=== PATIENT | female | born 1995 | race Caucasian/White ===

== ENCOUNTER 2019-02-02 18:27 | Outpatient (CLI) | payer OTHER ==
[~2019-02-02] VITALS: Ht 165.1 cm; Wt 118.7 kg
[~2019-02-02 18:27] MED LIST: DENIES
[2019-02-02 20:22] VITALS: BP 111/63; PULSE 85; RESP 18
[2019-02-02] MEDS ORDERED: FERR134T PO (20:25)
[2019-02-02] MEDS ORDERED: PREN-19 PO (20:25)
--- NOTE | 2019-02-27 09:22 | PREOPHP ---
DATE OF ADMISSION: 02/02/2019 HISTORY OF PRESENT ILLNESS: This is a 23-year-old lady, 1, para 0, EDC ____2019 at 38 and 4/ 7ths weeks, admitted to labor and delivery area for observation. She was having mild irregular contr actions that started about a few hours prior to admission. She had care in [facility] and the care was uneventful. PAST PERSONAL HISTORY: No history of TB, asthma. ALLERGIES: NO ALLERGIES. SOCIAL HISTORY: Patient does not smoke. She does not drink. MEDICATIONS: She does not take any drugs except her iron and vitamins. GYNECOLOGIC HISTORY: She had menarche at the age of 11, every 28 days interval, 3 to 4 days duration , and moderate in amount. GYNECOLOGICAL HISTORY: She had menarche at the age of 13, every 28 days interval, 3 to 4 days durati on, and moderate in amount. FAMILY HISTORY: Father has diabetes. Mother has hypertension and heart disease. REVIEW OF SYSTEMS: CARDIOVASCULAR: No chest pains. RESPIRATORY: No cough. GASTROINTESTINAL: No diarrhea, no vomiting. GENITOURINARY: No dysuria. PHYSICAL EXAMINATION: GENERAL: Reveals a conscious, coherent lady and in no acute distress. VITAL SIGNS: Her blood pressure 120/80, pulse rate 80 per minute, respirations 16 per minute. LUNGS: Within normal limits. ABDOMEN: Soft, fundic height 37 cm. heart tones 140 per minute. PELVIC: Revealed the cervix to be closed, station -2 in cephalic presentation with the bag of water intact. EXTREMITIES: No pedal edema. ADMITTING DIAGNOSIS: A 38 and 4/7ths weeks intrauterine , rule out labor. The patient was observed in the hospital and she was given IV hydration. After observation, the patient felt better and contractions had spaced out and almost no contractions, so after 3 hours of observation, she was discharged home in good and stable condition on general diet and activity that was restricted. She w as told to come back to the hospital if she has a problem or concern. FINAL DIAGNOSIS: A 38 and 4/7ths weeks intrauterine in for labor and dehydration. Dictated By: DEXTER PHAM/BRANDON Conf#: [id number] DID#: [id number]
== END 2019-02-02 21:30 | disposition home or self-care (01) ==
LOC: OBT 18:27 → L-D 18:28 → OBT 21:30
PROVIDERS: ATTEND Obstetrics & Gynecology
DX: O62.9 Abnormality of forces of labor, unspecified (principal); O26.893 Other specified pregnancy related conditions, third trimester; E86.0 Dehydration; Z3A.38 38 weeks gestation of pregnancy
CPT/HCPCS: 76815; 76818; 84112; Z7500; G0463

== ENCOUNTER 2019-02-05 13:13 | Inpatient (IN) | payer OTHER ==
[~2019-02-05] VITALS: Ht 165.1 cm; Wt 92.2 kg
[~2019-02-05 13:13] MED LIST changes: -DENIES; +FERR134T PO; +PREN-19 PO
[2019-02-11 14:14] VITALS: Ht 165.1 cm; Wt 92.2 kg
[2019-02-11 14:16] VITALS: BP 112/62; PULSE 68; RESP 18
[2019-02-11] MEDS ORDERED: METHYLERGONOVINE 0.2 MG INJ IM PRN (14:30)
[2019-02-11] MEDS ORDERED: LIDOCAINE 1% (MPF) 30 ML INJ INJ PRN (14:30)
[2019-02-11] MEDS ORDERED: CARBOPROST 250 MCG INJ IM PRN (14:30)
[2019-02-11] MEDS ORDERED: MISOPROSTOL 200 MCG TAB PR PRN (14:30)
[2019-02-11] MEDS ORDERED: BUTORPHANOL 2 MG INJ IV PRN (14:30)
[2019-02-11] MEDS ORDERED: OXYTOCIN 30 UNITS/LR 500 ML IV SCH ×2 (14:30)
[2019-02-11] MEDS ORDERED: IBUPROFEN 600 MG TAB PO PRN (14:30)
[2019-02-11] MEDS ORDERED: OXYTOCIN 30 UNITS/LR 500 ML IV PRN (14:30)
[2019-02-11] MEDS: OXYTOCIN 30 UNITS/LR 500 ML IV SCH (16:36)
[2019-02-11] MEDS: LACTATED RINGER'S 1,000 ML IV SCH ×2 (16:44→20:41)
[2019-02-12] MEDS: LACTATED RINGER'S 1,000 ML IV SCH ×4 (03:19→13:20)
[2019-02-12] MEDS: OXYTOCIN 30 UNITS/LR 500 ML IV SCH ×3 (10:01→23:23)
--- NOTE | 2019-02-12 11:44 | PREAC ---
Date/Time of Note Date/Time of Note DATE: 02/12/19 TIME: 11:43 Anesthesia Eval and Record Evaluation Time Pre-Procedure Interview DATE: 02/12/19 TIME: 11:43 Age 23 Sex female NPO: 8 hrs Preoperative diagnosis G1 Planned procedure labor epidural Past Medical History Past Medical History: Includes GI: Obesity Surgery & Anesthesia Issues No known issue Meds Anticoagulation: No Beta Destini within 24 hr: No Reason Beta Destini not given: Pt. not on B-Destini Reported Medications Vit #76/Iron,Carb/FA (Prenatabs Rx Tablet) 1 Each Tablet, 1 EACH PO DAILY, TAB 02/02/19 Ferrous Sulfate (Iron) 134 Mg Tablet, 134 MG PO DAILY, TAB 02/02/19 Current Medications Butorphanol Tartrate (Stadol) 2 mg Q2H PRN IV .PAIN Last administered on 02/12/19at 08:17; Admin Dose 2 MG; Start 02/11/19 at 14:30 Lidocaine (Xylocaine 1% (Mpf)) 30 ml ONCE PRN INJ .EPISIOTOMY; Start 02/11/19 at 14:30 Oxytocin/Lactated Ringer's 500 ml @ 500 mls/hr ONCE POST IV ; Start 02/11/19 at 14:30 Oxytocin/Lactated Ringer's 500 ml @ 125 mls/hr POST IV ; Start 02/11/19 at 14:30 Ibuprofen (Motrin) 600 mg ONCE PRN PO .PAIN 1-5; Start 02/11/19 at 14:30 Oxytocin/Lactated Ringer's 500 ml @ 0 mls/hr ONCE PRN IV .VAGINAL BLEEDING; Start 02/11/19 at 14:30 Methylergonovine Maleate (Methergine) 0.2 mg ONCE PRN IM .VAGINAL BLEEDING; Start 02/11/19 at 14:30 Carboprost Tromethamine (Hemabate) 250 mcg ONCE PRN IM .VAGINAL BLEEDING; Start 02/11/19 at 14:30 Misoprostol (Cytotec) 1,000 mcg ONCE PRN TN .VAGINAL BLEEDING; Start 02/11/19 at 14:30 Lactated Ringer's 1,000 ml @ 125 mls/hr Q8H IV Last administered on 02/12/19at 10:42; Admin Dose 125 MLS/HR; Start 02/11/19 at 14:30 Oxytocin/Lactated Ringer's 500 ml @ 0 mls/hr Q0M IV Last administered on 02/12/19at 10:01; Admin Dose 1 MLS/HR; Start 02/11/19 at 16:30 Meds reviewed: Yes Allergies Coded Allergies: No Known Drug Allergy (Verified Allergy, Mild, 02/02/19) Allergies Reviewed: Yes Labs/Studies Labs Reviewed: Reviewed by anesthesiologist Result Diagram: 02/11/19 1415 Laboratory Tests 02/11/19 14:15 Blood Bank Test 02/11/19 14:15 Antibody Screen NEGATIVE Blood Type O POSITIVE Rh Immune Globulin Candidate NO test: Positive Pre-procedure Exam Last vitals Vital Signs Date Temp Pulse Resp B/P (MAP) Pulse Ox O2 O2 Flow FiO2 Time Delivery Rate 02/11/19 98.2 68 18 112/62 Room Air 14:16 (79) Airway: Adequate mouth opening, Adequate thyromental dist Mallampati: Mallampati II Teeth: Normal Lung: Normal Heart: Normal ASA Physical Status ASA physical status: 2 Emergency: None Planned Anesthetic Neuraxial: Epidural Pre-operative Attestations Prior to commencing anesthesia and surgery, the patient was re-evaluated, there was verification of: *The patient's identity *The results of appropriate recent lab work and preoperative vital signs *The above evaluation not changing prior to induction *Anesthetic plan, risk benefits, alternative and complications discussed with patient/family; questions answered; patient/family understands, accepts and wishes to proceed. ANITA PHILLIPS Feb 12, 2019 11:44
[2019-02-12] MEDS ORDERED: FENTAnyl 2MCG/ML-ROPIV 0.2% 100 ML ONE (11:56)
[2019-02-12] MEDS ORDERED: DIPHENHYDRAMINE 50 MG INJ IV PRN (12:00)
[2019-02-12] MEDS ORDERED: NALOXONE (0.4 MG/ML) INJ IV PRN (12:00)
[2019-02-12] MEDS ORDERED: HYDROmorphONE 0.5 MG/0.5 ML SYG IV PRN ×2 (12:00)
[2019-02-12] MEDS ORDERED: FENTAnyl 2MCG/ML-ROPIV 0.2% 100 ML BAG EPI SCH (12:00)
[2019-02-12] MEDS ORDERED: ONDANSETRON 4 MG INJ IV PRN ×2 (12:00→18:30)
[2019-02-12] MEDS ORDERED: KETOROLAC 30 MG INJ IV PRN (12:00)
--- NOTE | 2019-02-12 12:19 | PAC ---
Date/Time of Note Date/Time of Note DATE: 02/12/19 TIME: 12:19 Post-Anesthesia Notes Post-Anesthesia Note Last documented vital signs Vital Signs Date Temp Pulse Resp B/P (MAP) Pulse Ox O2 O2 Flow FiO2 Time Delivery Rate 02/11/19 98.2 68 18 112/62 Room Air 14:16 (79) Activity: WNL Respiratory function: WNL Cardiovascular function: WNL Mental status: Baseline Pain reasonably controlled: Yes Hydration appropriate: Yes Nausea/Vomiting absent: Yes ANITA PHILLIPS Feb 12, 2019 12:19
--- NOTE | 2019-02-12 18:25 | LDN ---
Date/Time of Note Date/Time of Note DATE: 02/12/19 TIME: 18:22 Delivery Summary February 12, 2019 I was called to cover the delivery when the patient was complete and was trying to push.. She has significant urge to push. Patient had been induced and had been managing by primary OB, she was assigned to cover for delivery. Status post induction for postdate Weeks of Gestation 40 weeks Placenta Delivered: Spontaneously Meconium: none Episiotomy: No Indication for episiotomy N./A Perineal laceration: 2 Laceration repair: Second degree perineal laceration noted repaired using 2-0 vicryl and 3-0 chromic Anesthesia type: Epidural Estimated blood loss: 500 Sponge & Needle done & correct: Yes All needle counts correct: Yes Any foreign bodies felt in the: No Delivery Information Sex Infant Sex: male Apgars 1 Minute: 8 5 Minute: 9 Suctioning Nose & mouth suctioned at jamie: Yes Delee suction performed: Yes Umbilical Cord Umbilical cord with: 3 Vessels Cord presentations: no nuchal cord Cord Blood was obtained: Yes SANDIE DURAN MD Feb 12, 2019 18:25
[2019-02-12] MEDS: IBUPROFEN 600 MG TAB PO SCH ×2 (18:30→23:20)
[2019-02-12] MEDS ORDERED: LANOLIN HPA 1 PKT TOP PRN (18:30)
[2019-02-12] MEDS ORDERED: MISOPROSTOL 200 MCG TAB PR PRN (18:30)
[2019-02-12] MEDS ORDERED: NACL 0.9% 3 ML SYG IV SCH (18:30)
[2019-02-12] MEDS ORDERED: OXYTOCIN 30 UNITS/LR 500 ML IV PRN (18:30)
[2019-02-12] MEDS ORDERED: DIPHENHYDRAMINE 25 MG CAP PO PRN (18:30)
[2019-02-12] MEDS ORDERED: CARBOPROST 250 MCG INJ IM PRN (18:30)
[2019-02-12] MEDS ORDERED: WITCH HAZEL/GLYCERIN PAD PR PRN (18:30)
[2019-02-12] MEDS ORDERED: ACETAMINOPHEN 325 MG TAB PO PRN (18:30)
[2019-02-12] MEDS ORDERED: ZOLPIDEM 5 MG TAB PO PRN (18:30)
[2019-02-12 20:45] VITALS: BP 105/63; PULSE 103; RESP 18
--- NOTE | 2019-02-12 20:54 | PREOPHP ---
DATE OF ADMISSION: 02/11/2019 HISTORY OF PRESENT ILLNESS: This is a 23-year-old lady, 1, her EDC 02/12/2019, at 39 and 6/7 weeks, admitted in early labor and for Pitocin augmentation. She had care in [facility] and the care was uneventful. PAST PERSONAL HISTORY: No history of diabetes, TB, asthma. ALLERGIES: NO ALLERGIES. SOCIAL HISTORY: The patient does not smoke. She does not drink. MEDICATIONS: She does not take any drugs except her: 1. Iron. 2. Vitamins. GYNECOLOGIC HISTORY: She had menarche at the age of 13, every 28 days interval, 3 to 4 days duration and moderate in amount. FAMILY HISTORY: Father has diabetes. Mother has hypertension and father had heart disease. REVIEW OF SYSTEMS: CARDIOVASCULAR: No chest pains. RESPIRATORY: No cough. GASTROINTESTINAL: No diarrhea, no vomiting. GENITOURINARY: No dysuria. PHYSICAL EXAMINATION: GENERAL: Reveals a conscious, coherent lady and in no acute distress. VITAL SIGNS: Her blood pressure 120/80, pulse rate 80 per minute, respirations 16 per minute. BREASTS, HEART AND LUNGS: Within normal limits. ABDOMEN: Soft. Fundic height is 37 cm. heart tones are 140 per minute. PELVIC: Done by me on 4:00 p.m. on 02/11/2019, revealed the cervix to be 2 cm dilated, 50% effaced a nd station -2 in cephalic presentation with the bag of water intact. EXTREMITIES: No pedal edema. ADMITTING DIAGNOSIS: A 39 and 6/7 weeks intrauterine in early labor. The patient had an OB ultrasound and estimated weight was 8 pounds and 8 ounces. The plans of delivery were explained to the patient and to her mother as to go for vaginal delivery. The risks, b enefits and alternatives to vaginal delivery were explained to the patient and . The risks of shoulder dystocia were explained to the patient and she understood everything totally. The patien t will be discharged to go for a trial of labor and to go for vaginal delivery. She is waiting to ta ke the risks of shoulder dystocia as well. The nurse was present at this discussion and it is on her progress note. The patient was given Pitocin augmentation. The patient was observed overnight. Sh jacklyn received Stadol for pain and at 12:00 noon on 02/12/2019, she was noted to be 7 cm dilated, 100% ef faced, station 0 in cephalic presentation with the bag of water intact and bulging. She had artifici al rupture of membranes. scalp electrodes and IPC were inserted. She just received labor epid ural. She was planned to continue on Pitocin augmentation. Dictated By: DEXTER PHAM/BRANDON Conf#: [id number] DID#: [id number]
[2019-02-12] MEDS: SENNA/DOCUSATE NA (8.6MG/50MG) TAB PO SCH (23:21)
[2019-02-12 23:30] VITALS: BP 104/65; PULSE 101; RESP 18
[2019-02-13 03:29] VITALS: BP 92/50; PULSE 85; RESP 18
[2019-02-13] MEDS: IBUPROFEN 600 MG TAB PO SCH ×4 (05:47→23:40)
[2019-02-13 08:00] VITALS: BP 103/65; PULSE 75; RESP 16
[2019-02-13] MEDS: SENNA/DOCUSATE NA (8.6MG/50MG) TAB PO SCH ×2 (10:11→21:00)
[2019-02-13 15:40] VITALS: BP 112/65; PULSE 87; RESP 16
[2019-02-13] MEDS ORDERED: BISACODYL 10 MG SUPP PR ONE ×2 (16:00→21:00)
[2019-02-13] MEDS ORDERED: BENZOCAINE 20% 56 ML SPRAY TOP PRN (16:00)
[2019-02-13] MEDS ORDERED: MAGNESIUM HYDROXIDE 30ML CUP PO ONE ×2 (16:00→21:00)
--- NOTE | 2019-02-13 16:56 | PN ---
Date/Time of Note Date/Time of Note DATE: 02/13/19 TIME: 16:55 Assessment/Plan VTE [place]axis [place] [facility] [place] risk: 2 [place]CD [place] [facility] [place] No SCD contraindicated: low risk/ambulating Pharmacological prophylaxis: NA/contraindicated Pharm contraindication: low risk/ambulating Lines/Catheters IV Catheter Type (from [facility]): Peripheral IV Assessment/Plan Assessment/Plan POST DAY 1 CHRONIC IRON DEFICIENCY ANEMIA HOME TOMORROW RETURN TO CLINIC IN 2 WEEKS CONTINUE WITH VITAMINS OD AND FERROUS SULFATE PO TID DIET ADVISED COUNSELED INSTRUCTED CALL OFFICE IF THERE IS ANY PROBLEMS OR CONCERN Result Diagram: 02/13/19621 Results 24hrs Laboratory Tests Test 02/12/19 19:34 02/13/19 04:30 02/13/19 06:22 Hemoglobin 10.7 L 9.4 L Hematocrit 31.8 L 28.7 L Urine Opiates Screen Negative Urine Barbiturates Negative Urine Amphetamines Screen Negative Urine Benzodiazepines Screen Negative Urine Cocaine Screen Negative Urine Cannabinoids Negative White Blood Count 11.0 #H Red Blood Count 3.08 #L Mean Corpuscular Volume 93.2 Mean Corpuscular Hemoglobin 30.5 Mean Corpuscular Hemoglobin Concent 32.8 Red Cell Distribution Width 13.6 Platelet Count 117 #L Mean Platelet Volume 12.2 H Immature Granulocytes % 0.500 H Neutrophils % 69.9 Lymphocytes % 17.8 Monocytes % 10.8 Eosinophils % 0.7 Basophils % 0.3 Nucleated Red Blood Cells % 0.0 Immature Granulocytes # 0.060 H Neutrophils # 7.7 H Lymphocytes # 2.0 Monocytes # 1.2 H Eosinophils # 0.1 Basophils # 0.0 Nucleated Red Blood Cells # 0.0 Subjective 24 Hr Interval Summary Free Text/Dictation FEELS GOOD, GOOD URINE OUTPUT, GOOD BOWEL MOVEMENT Exam/Review of Systems Exam Vitals Vital Signs Date Temp Pulse Resp B/P (MAP) Pulse Ox O2 O2 Flow FiO2 Time Delivery Rate 02/13/19 99.3 87 16 112/65 15:40 (81) 02/13/19 Room Air 08:00 Intake and Output 02/12/19 02/12/19 02/13/19 1515:00 23:00 07:00 IntakeIntake Total 2933 ml 1950 ml 850 ml OutputOutput Total 1100 ml 50 ml 1200 ml BalanceBalance 1833 ml 1900 ml -350 ml Exam VITAL SIGNS STABLE: YES AFEBRILE: YES BREAST NOT ENGORGED, NON-TENDER, NO APPRECIABLE MASS: YES LUNGS CLEAR, NO RALES, WHEEZES, RHONCHI: YES SINUS RHYTHM WITHOUT MURMUR: YES ABDOMEN: NON-TENDER FUNDUS: BELOW UMBILICUS BOWEL SOUNDS: PRESENT UTERUS: FIRM TEAR HEALING WELL LOCHIA: LIGHT DEEP TENDON REFLEXES: 0 EXTREMITIES: NO CALF TENDERNESS EDEMA SCALE: NONE Results Results 24hrs Laboratory Tests Test 02/12/19 19:34 02/13/19 04:30 02/13/19 06:22 Hemoglobin 10.7 L 9.4 L Hematocrit 31.8 L 28.7 L Urine Opiates Screen Negative Urine Barbiturates Negative Urine Amphetamines Screen Negative Urine Benzodiazepines Screen Negative Urine Cocaine Screen Negative Urine Cannabinoids Negative White Blood Count 11.0 #H Red Blood Count 3.08 #L Mean Corpuscular Volume 93.2 Mean Corpuscular Hemoglobin 30.5 Mean Corpuscular Hemoglobin Concent 32.8 Red Cell Distribution Width 13.6 Platelet Count 117 #L Mean Platelet Volume 12.2 H Immature Granulocytes % 0.500 H Neutrophils % 69.9 Lymphocytes % 17.8 Monocytes % 10.8 Eosinophils % 0.7 Basophils % 0.3 Nucleated Red Blood Cells % 0.0 Immature Granulocytes # 0.060 H Neutrophils # 7.7 H Lymphocytes # 2.0 Monocytes # 1.2 H Eosinophils # 0.1 Basophils # 0.0 Nucleated Red Blood Cells # 0.0 Medications Medication Current Medications IV Flush (NS 3 ml) 3 ml PER PROTOCOL IV ; Start 02/12/19 at 18:30 Ibuprofen (Motrin) 600 mg Q6 PO Last administered on 02/13/19at 12:34; Admin Dose 600 MG; Start 02/12/19 at 18:30 Ondansetron HCl (Zofran Inj) 4 mg Q6H PRN IV NAUSEA/VOMITING; Start 02/12/19 at 18:30 Diphenhydramine HCl (Benadryl) 25 mg Q6H PRN PO .PRUTITUS; Start 02/12/19 at 18:30 Zolpidem Tartrate (Ambien) 5 mg QHS PRN PO .INSOMNIA; Start 02/12/19 at 18:30 Senna/Docusate Sodium (Senokot-S) 1 tab BID PO Last administered on 02/13/19at 10:11; Admin Dose 1 TAB; Start 02/12/19 at 21:00 Witch Jemma/ Glycerin (Tucks Pads) 1 pad BEDSIDE MEDICATION PRN AK .HEMORRHOID/EPISIOTOMY PAIN Last administered on 02/12/19at 23:21; Admin Dose 1 PAD; Start 02/12/19 at 18:30 Lanolin (Lanolin Hpa) 1 applic BEDSIDE MEDICATION PRN TOP .NIPPLES Last administered on 02/12/19 23:21; Admin Dose 1 APPLIC; Start 02/12/19 at 18:30 Measles/Mumps/ Rubella Vaccine Live (Mmr Ii Vaccine) 0.5 ml ONCE ONCE SC* ; Start 02/14/19 at 09:00; Stop 02/14/19 at 09:01 Diphtheria/ Tetanus/Acell Pertussis (Adacel) 0.5 ml ONCE ONCE IM* ; Start 02/14/19 at 09:00; Stop 02/14/19 at 09:01 Varicella Virus Vaccine Live (Varivax Vaccine With Diluent) 1,350 unit ONCE ONCE SC* ; Start 02/14/19 at 09:00; Stop 02/14/19 at 09:01 Acetaminophen (Tylenol Tab) 650 mg Q4H PRN PO .TEMP; Start 02/12/19 at 18:30 Oxytocin/Lactated Ringer's 500 ml @ 0 mls/hr ONCE PRN IV .VAGINAL BLEEDING; Start 02/12/19 at 18:30 Carboprost Tromethamine (Hemabate) 250 mcg ONCE PRN IM .VAGINAL BLEEDING; Start 02/12/19 at 18:30 Misoprostol (Cytotec) 1,000 mcg ONCE PRN [place] .VAGINAL BLEEDING; Start 02/12/19 at 18:30 Benzocaine (Dermoplast [place]) 1 spray PRN PRN TOP EPISIOTOMY Last administered on 02/13/19 16:20; Admin Dose 1 SPRAY; Start 02/13/19 at 16:00 Magnesium Hydroxide (Milk Of Mag) 30 ml ONCE ONCE PO ; Start 02/13/19 at 21:00; Stop 02/13/19 at 21:01 Bisacodyl (Dulcolax Supp) 10 mg ONCE ONCE AK ; Start 02/13/19 at 21:00; Stop 4/5/19 at 21:01 DEXTER REID MD Feb 13, 2019 16:56
[2019-02-13 19:30] VITALS: BP 115/72; PULSE 80; RESP 19
[2019-02-14 04:00] VITALS: BP 107/78; PULSE 83; RESP 20
[2019-02-14] MEDS: IBUPROFEN 600 MG TAB PO SCH ×2 (05:47→11:40)
[2019-02-14 08:10] VITALS: BP 104/56; PULSE 75; RESP 18
[2019-02-14] MEDS: SENNA/DOCUSATE NA (8.6MG/50MG) TAB PO SCH (09:00)
[2019-02-14] MEDS ORDERED: MEASLES,MUMPS,RUBELLA VACCINE INJ SC* ONE (09:00)
[2019-02-14] MEDS ORDERED: DIPHTH/TET/ACEL PERTUSS (ADULT) 0.5 ML VIAL IM* ONE (09:00)
[2019-02-14] MEDS ORDERED: VARICELLA VACCINE LIVE/PF 1,350 UNIT/0.5 ML ML SC* ONE (09:00)
--- NOTE | 2019-02-15 14:31 | DELSUM ---
Delivery Summary A-C Datetime Report Generated by CPN: 02/15/2019 14:30 DELIVERY PERSONNEL Production Sanitizer: Tish, Estrelita MATERNAL INFORMATION Delivery Anesthesia: Epidural Medications in Delivery: none Delivery QBL (ml): 500 Placenta Cultured: No Maternal Complications: None RN Comments: gbs neg,rh o positive LABOR SUMMARY EDC: 02/12/2019 00:00 No. Babies in Womb: 1 Attempted: No Labor Anesthesia: Epidural LABOR INFORMATION Reason for Induction: Macrosomia; Other Reason for Induction- Other: TERM 39.6/MACROSOMIA Onset of Labor: 02/12/2019 10:35 Complete Dilatation: 02/12/2019 15:00 Oxytocin: Augmentation Group B Beta Strep: Negative Antibiotics # of Doses: 0 Steroids Given: None Reason Steroids Not Administered: Not Applicable MEMBRANES Membranes Rupture Method: Artificial Rupture of Membranes: 02/12/2019 12:00 Length of Rupture (hr): 4.58 Amniotic Fluid Color: Clear Amniotic Fluid Amount: Moderate Amniotic Fluid Odor: Normal STAGES OF LABOR Stage 1 hr: 4 Stage 1 min: 25 Stage 2 hr: 1 Stage 2 min: 35 Stage 3 hr: 0 Stage 3 min: 2 Total Time in Labor hr: 6 Total Time in Labor min: 2 VAGINAL DELIVERY Episiotomy: None Laceration Extension: Second Degree Laceration Type: None Laceration Repair: Yes Initial Vag Sponge Count: 10 Final Vag Sponge Count: 10 Initial Vag Sharps Count: 4 Final Vag Sharps Count: 4 Sponge Count Correct: Yes; N/A Sharps Count Correct: Yes Count Comment: all counts correct BABY A INFORMATION Delivery Date/Time: 02/12/2019 16:35 Method of Delivery: Vaginal Born in Route : No : N/A Forceps: N/A Vacuum Extraction: N/A Shoulder Dystocia : N/A SHOULDER DYSTOCIA BABY A Infant Delivery Date/Time: 02/12/2019 16:35 PRESENTATION/POSITION BABY A Presentation: Cephalic Cephalic Presentation: Vertex Vertex Position: Left Occipital Anterior Breech Presentation: N/A PLACENTA INFORMATION BABY A Placenta Delivery Time : 02/12/2019 16:37 Placenta Method of Delivery: Spontaneous Placenta Status: Delivered SCORES BABY A Heart Rate 1 min: >100 bpm Resp Effort 1 min: Good Cry Reflex Irritability 1 min: Cough/Sneeze/Pulls Away Muscle Tone 1 min: Active Motion Color 1 min: Blue/Pale SCORE 1 MIN: 8 Heart Rate 5 min: >100 bpm Resp Effort 5 min: Good Cry Reflex Irritability 5 min: Cough/Sneeze/Pulls Away Muscle Tone 5 min: Active Motion Color 5 min: Body [place], Extremit Blue SCORE 5 MIN: 9 INFORMATION BABY A Gestational Age at Delivery: 40.0 Gestational Status: Full Term- 39- 40.6 Weeks Outcome : Liveborn Infant Condition : Stable Infant Sex: Male IDENTIFICATION/MEDS BABY A ID Band Number: [id number] ID Band Location: Right Leg; Left Arm Sensor Applied: Yes Sensor Number: [id number] Sensor Location : Cord Clamp Vitamin K Given : Not Given Erythromycin Given: Not Given WEIGHT/LENGTH BABY A Birthweight (gm): 3690 Infant Weight (lb): 8 Infant Weight (oz): 2 Infant Length (in): 20.50 Length (cm): 52.07 CORD INFORMATION BABY A No. Cord Vessels: 3 Nuchal Cord : N/A Cord Blood Taken: Yes Suction: Mouth; Nose ASSESSMENT BABY A Infant Complications: Multiple Variable Decels Physical Findings at Delivery: Molding of the Head Infant Respirations: Appears Normal Ultrasound Spec/ALS Called : No Care By: lennox kaminski rn Transferred To: Remains with Mother
== END 2019-02-14 14:00 | disposition home or self-care (01) | DRG 807 ==
LOC: EDSTATUS 13:13 → L-D 02-11 13:18 → PP1 02-12 20:32
PROVIDERS: ADMIT Obstetrics & Gynecology; ATTEND Obstetrics & Gynecology
PROC: 10907ZC Drainage of Amniotic Fluid, Therapeutic from Products of Conception, Via Natural or Artificial Opening (ICD-10-PCS; 2019-02-11)
PROC: 10H073Z Insertion of Monitoring Electrode into Products of Conception, Via Natural or Artificial Opening (ICD-10-PCS; 2019-02-11)
PROC: 4A1H74Z Monitoring of Products of Conception, Cardiac Electrical Activity, Via Natural or Artificial Opening (ICD-10-PCS; 2019-02-11)
PROC: 10H07YZ Insertion of Other Device into Products of Conception, Via Natural or Artificial Opening (ICD-10-PCS; 2019-02-11)
PROC: 4A1HX4Z Monitoring of Products of Conception, Cardiac Electrical Activity, External Approach (ICD-10-PCS; 2019-02-11)
PROC: 10E0XZZ Delivery of Products of Conception, External Approach (ICD-10-PCS; principal; 2019-02-12)
PROC: 0KQM0ZZ Repair Perineum Muscle, Open Approach (ICD-10-PCS; 2019-02-12)
PROC: 3E0234Z Introduction of Serum, Toxoid and Vaccine into Muscle, Percutaneous Approach (ICD-10-PCS; 2019-02-14)
DX: O70.1 Second degree perineal laceration during delivery (principal); Z37.0 Single live birth; O99.214 Obesity complicating childbirth; Z3A.40 40 weeks gestation of pregnancy; Z23 Encounter for immunization
CPT/HCPCS: 76815; 76818; 80307; 85014; 85018; 85025; 85610; 85730; 86592; 86850; 86900; 86901; 90715; 90716; 99464; J0595; J2590; J3010; J7120